=== PATIENT | female | born 1975 | race Hispanic/Latino ===

== ENCOUNTER 2017-09-06 15:08 | Inpatient (IN) | payer SELFPAY ==
[~2017-09-06] VITALS: Ht 167.6 cm; Wt 96.7 kg
[2017-09-06 15:59] LABS: BASOPHILS % (AUTO) 0.7 % (0.0-5.0); EOSINOPHILS % (AUTO) 1.4 % (0.0-8.0); HEMATOCRIT 38.7 % (36-48); LYMPHOCYTES % (AUTO) 32.9 % (21.0-51.0); MEAN CORPUSCULAR HEMOGLOBIN 29.3 pg (27.0-33.0); MEAN CORPUSCULAR HGB CONC 35.9 g/dL (32.0-36.0); MEAN CORPUSCULAR VOLUME 81.6 fL (79-99); MONOCYTES % (AUTO) 7.6 % (3.0-13.0); NEUTROPHILS % (AUTO) 57.4 % (40.0-77.0); PLATELET COUNT (AUTO) 235 K/uL (130-400); RED BLOOD CELL COUNT(AUTO) 4.74 MIL/uL (4.00-5.50); RED CELL DISTRIBUTION WIDTH 14.1 % (11.0-15.5); WHITE BLOOD COUNT (AUTO) 9.6 K/uL (4.8-10.8)
[2017-09-06 16:12] LABS: CREATININE 0.6 mg/dL (0.5-1.5); POTASSIUM 4.1 mmol/L (3.5-5.1)
[2017-09-06 16:17] LABS: ALBUMIN 3.8 g/dL (3.5-5.0); BILIRUBIN,TOTAL 0.4 mg/dL (0.2-1.0); TOTAL PROTEIN, SERUM 7.9 g/dL (6.0-8.3)
[2017-09-06] MEDS ORDERED: GADOBENATE DIMEGLUMINE 10 ML IV ONE (18:22)
[2017-09-06] MEDS ORDERED: ASPIRIN 325 MG TABLET ONE (19:56)
[2017-09-06 21:00] VITALS: BP 102/74
[2017-09-06 23:52] VITALS: BP 102/67
[2017-09-07] MEDS ORDERED: FAMOTIDINE/PF 20 MG/2 ML VIAL IV SCH (01:15)
[2017-09-07] MEDS ORDERED: HYDRALAZINE HCL 20 MG/ML VIAL IV PRN (01:15)
[2017-09-07] MEDS ORDERED: ACETAMINOPHEN 325 MG TAB PO PRN ×2 (01:15→01:45)
[2017-09-07] MEDS ORDERED: FAMOTIDINE 20MG TAB 20 MG TAB ONE (02:06)
[2017-09-07] MEDS ORDERED: ONDANSETRON HCL MDV 20ML 2 MG/ML VIAL IVP PRN (02:15)
[2017-09-07] MEDS: FAMOTIDINE 20MG TAB 20 MG TAB PO SCH (02:27)
[2017-09-07 03:16] VITALS: BP 105/85
[2017-09-07 06:02] LABS: BASOPHILS % (AUTO) 0.4 % (0.0-5.0); HEMATOCRIT 35.7 % (36-48); MEAN CORPUSCULAR HEMOGLOBIN 28.3 pg (27.0-33.0); MEAN CORPUSCULAR HGB CONC 34.7 g/dL (32.0-36.0); MEAN CORPUSCULAR VOLUME 81.5 fL (79-99); MONOCYTES % (AUTO) 7.2 % (3.0-13.0); NEUTROPHILS % (AUTO) 48.4 % (40.0-77.0); PLATELET COUNT (AUTO) 212 K/uL (130-400); RED BLOOD CELL COUNT(AUTO) 4.39 MIL/uL (4.00-5.50); RED CELL DISTRIBUTION WIDTH 14.3 % (11.0-15.5); WHITE BLOOD COUNT (AUTO) 8.1 K/uL (4.8-10.8)
[2017-09-07] MEDS ORDERED: LOSA25TA21 PO (06:08)
[2017-09-07 06:29] LABS: CREATININE 0.6 mg/dL (0.5-1.5); POTASSIUM 3.9 mmol/L (3.5-5.1); THYROID STIMULATING HORMONE 4.28 uIU/mL (0.36-3.74)
[2017-09-07 07:00] VITALS: BP 100/59
[2017-09-07] MEDS ORDERED: ASPIRIN 325MG EC TAB 325 MG TABLET.DR PO SCH (09:00)
[2017-09-07 09:29] LABS: HEMOGLOBIN A1C 5.3 % (4.0-6.0)
[2017-09-07] MEDS: ATORVASTATIN CALCIUM 40 MG TABLET PO SCH (09:46)
[2017-09-07] MEDS: LOSARTAN 50 MG TABLET PO SCH (09:46)
[2017-09-07] MEDS: DOCUSATE SODIUM 100 MG CAP PO SCH ×2 (09:50→20:56)
[2017-09-07] MEDS: ENOXAPARIN SODIUM 40 MG/0.4 ML SYRINGE SQ SCH (09:50)
[2017-09-07 11:00] VITALS: BP 109/63
[2017-09-07 16:00] VITALS: BP 122/74
[2017-09-07 20:20] VITALS: BP 110/76
[2017-09-07 23:45] VITALS: BP 106/63
[2017-09-08] MEDS: FAMOTIDINE 20MG TAB 20 MG TAB PO SCH ×2 (02:10→23:50)
[2017-09-08 04:10] VITALS: BP_SYST 106; BP_DIAS 67; BP_DIAS 73
[2017-09-08 05:07] LABS: CREATININE 0.7 mg/dL (0.5-1.5); MAGNESIUM 1.9 mg/dL (1.80-2.40)
[2017-09-08 08:11] VITALS: BP 106/74
[2017-09-08] MEDS: DOCUSATE SODIUM 100 MG CAP PO SCH ×2 (09:14→20:46)
[2017-09-08] MEDS: ASPIRIN 81MG TAB.CHEW PO SCH (09:14)
[2017-09-08] MEDS: ATORVASTATIN CALCIUM 40 MG TABLET PO SCH (09:14)
[2017-09-08] MEDS: LOSARTAN 50 MG TABLET PO SCH (09:15)
[2017-09-08] MEDS: ENOXAPARIN SODIUM 40 MG/0.4 ML SYRINGE SQ SCH (09:15)
[2017-09-08 11:54] VITALS: BP 107/77
[2017-09-08] MEDS ORDERED: ASPI-1005 PO (15:55)
[2017-09-08] MEDS ORDERED: ATOR40TA69 PO (15:55)
[2017-09-08] MEDS ORDERED: LOSA50TA2 PO (15:55)
[2017-09-08 16:33] VITALS: BP 102/69
[2017-09-08 19:20] VITALS: BP 103/75
[2017-09-09 00:05] VITALS: BP 102/64
[2017-09-09 08:24] VITALS: BP 125/62
[2017-09-09] MEDS: DOCUSATE SODIUM 100 MG CAP PO SCH (08:34)
[2017-09-09] MEDS: LOSARTAN 50 MG TABLET PO SCH (08:34)
[2017-09-09] MEDS: ASPIRIN 81MG TAB.CHEW PO SCH (08:34)
[2017-09-09] MEDS: ATORVASTATIN CALCIUM 40 MG TABLET PO SCH (08:34)
[2017-09-09] MEDS: ENOXAPARIN SODIUM 40 MG/0.4 ML SYRINGE SQ SCH (08:35)
[2017-09-09 11:47] VITALS: BP 104/74
== END 2017-09-09 14:14 | disposition home or self-care (01) | DRG 69 ==
LOC: EDH 15:08 → EDHIP 15:09 → 4BH 21:00
PROVIDERS: ADMIT Family Medicine; ATTEND Family Medicine
DX: G45.9 Transient cerebral ischemic attack, unspecified (principal); D32.9 Benign neoplasm of meninges, unspecified; E78.5 Hyperlipidemia, unspecified; Z68.34 Body mass index [BMI] 34.0-34.9, adult; E66.9 Obesity, unspecified; E03.9 Hypothyroidism, unspecified; I10 Essential (primary) hypertension; Z98.51 Tubal ligation status
CPT/HCPCS: 36415; 70450; 70553; 80048; 80053; 80061; 82948; 83036; 83735; 84443; 85025; 93005; 93306; 93880; 93970; A9577; J1650

== ENCOUNTER 2018-06-07 14:03 | Emergency (ER) | payer SELFPAY ==
[~2018-06-07 14:03] MED LIST: ASPI-1005 PO; ATOR40TA69 PO; LOSA25TA16 PO; LOSA50TA2 PO
== END 2018-06-07 22:32 ==
LOC: EDH 14:03
DX: S10.15XA Superficial foreign body of throat, initial encounter (principal); E78.00 Pure hypercholesterolemia, unspecified; I10 Essential (primary) hypertension; Z85.841 Personal history of malignant neoplasm of brain; X58.XXXA Exposure to other specified factors, initial encounter; Y93.89 Activity, other specified; Y92.89 Other specified places as the place of occurrence of the external cause; Y99.8 Other external cause status
CPT/HCPCS: 70490

== ENCOUNTER 2019-01-03 00:47 | Emergency (ER) | payer OTHER ==
[~2019-01-03 00:47] MED LIST changes: -LOSA25TA16 PO; +LOSA25TA41 PO
== END 2019-01-03 02:39 | disposition home or self-care (01) ==
LOC: EDH 00:47
DX: S13.9XXA Sprain of joints and ligaments of unspecified parts of neck, initial encounter (principal); E78.00 Pure hypercholesterolemia, unspecified; I10 Essential (primary) hypertension; V49.49XA Driver injured in collision with other motor vehicles in traffic accident, initial encounter; Y93.89 Activity, other specified; Y92.89 Other specified places as the place of occurrence of the external cause; Y99.8 Other external cause status
CPT/HCPCS: 72040

== ENCOUNTER 2024-05-28 19:28 | Emergency (ER) | payer BC ==
[~2024-05-28] VITALS: Ht 165.1 cm; Wt 79.4 kg
[~2024-05-28 19:28] MED LIST changes: +LOSA-418 PO; -LOSA50TA2 PO; +OMEP40CA21 PO; +ONDA-104 PO
--- NOTE | 2024-05-28 19:34 | NUR ---
UA CUP PROVIDED
[2024-05-28 20:36] LABS: BASOPHILS # (AUTO) 0.06 K/uL (0.00-0.20); BASOPHILS % (AUTO) 0.8 % (0.0-5.0); EOSINOPHILS # (AUTO) 0.09 K/uL (0.00-0.70); EOSINOPHILS % (AUTO) 1.1 % (0.0-8.0); HEMATOCRIT 35.6 % (36-48); IMMATURE GRANULOCYTE ABSOLUTE 0.02 K/uL (0-1); LYMPHOCYTES # (AUTO) 2.5 K/uL (1.0-4.8); MEAN CORPUSCULAR HEMOGLOBIN 28.4 pg (27.0-33.0); MEAN CORPUSCULAR HGB CONC 32.9 g/dL (32.0-36.0); MEAN CORPUSCULAR VOLUME 86.4 fL (79-99); MONOCYTES # (AUTO) 0.5 K/uL (0.1-1.0); NEUTROPHILS # (AUTO) 4.7 K/uL (1.8-7.7); NEUTROPHILS % (AUTO) 59.8 % (40.0-77.0); PLATELET COUNT (AUTO) 222 K/uL (130-400); RED BLOOD CELL COUNT(AUTO) 4.12 MIL/uL (4.00-5.50); RED CELL DISTRIBUTION WIDTH 13.2 % (11.0-15.5); WHITE BLOOD COUNT (AUTO) 7.9 K/uL (4.8-10.8)
[2024-05-28 20:45] LABS: CREATININE 0.8 mg/dL (0.5-1.0); POTASSIUM 3.8 mmol/L (3.5-5.1)
[2024-05-28] MEDS: HYDROcodone/acetaMINOPHEN 10/325 MG TAB PO ONE (22:38)
--- NOTE | 2024-05-29 00:05 | HMCIMG ---
CT HEAD/BRAIN W/O CONTRAST HISTORY: Severe headaches COMPARISON: None TECHNIQUE: Multiple sequential axial images of the head were obtained from the base of the skull through vertex. Patient was not given contrast through intravenous route. FINDINGS: The ventricles and extraventricular CSF spaces are nondilated for patient's age. There is no midline shift, mass effect or herniation. No acute intracranial bleed is seen. Visualized portion of the paranasal sinuses are grossly within normal limits. IMPRESSION: 1. No acute intracranial bleed is seen. CT was performed with one or more following dose reduction techniques: automated exposure control, adjustment of the mA and kv according to patient's size, or use of a iterative reconstruction technique.
[2024-05-29] MEDS ORDERED: KETO10TA2 PO (00:10)
--- NOTE | 2024-05-29 00:11 | ERN ---
General Chief Complaint: Headache Stated Complaint: HEADACHE Time Seen by MD: 19:30 Time Seen by Midlevel: 19:30 Source: patient History of Present Illness Initial Comments Patient is a 49-year-old female with a past medical history of an ischemic stroke and meningioma presenting to the emergency department with intermittent episodes of a headache. The headache starts in the parietal area but then radiates to the frontal aspect of the scalp. During these episodes of headaches she reports vision changes. They usually resolve on their own however they have been come more frequently recently. Given patient's history of stroke and meningioma she was concerned so she decided to report to the ER for further evaluation. Allergies: Coded Allergies: No Known Drug Allergies (Unverified Allergy, Unknown, 09/06/17) Home Meds Active Scripts Ketorolac Tromethamine (Ketorolac Tromethamine) 10 Mg Tablet, 1 TAB PO TID for pain for 5 Days, #15 TAB 0 Refills Prov:TELLY KING 05/29/24 Ondansetron HCl (Ondansetron HCl) 4 Mg Tablet, 4 MG PO TIDP PRN for VOMITING, #20 TAB Prov:SHANNON MCGILL MD 05/15/22 Omeprazole (Omeprazole) 40 Mg Capsule.dr, 40 MG PO DAILY, #30 CAP Prov:SHANNON MCGILL MD 05/15/22 Losartan Potassium (Cozaar) 50 Mg Tablet, 25 MG PO DAILY for 30 Days, #30 TAB Prov:GINETTE HENLEY NP 09/08/17 Atorvastatin Calcium (LIPITOR) 40 Mg Tablet, 40 MG PO DAILY for 30 Days, #30 TAB Prov:GINETTE HENLEY NP 09/08/17 Aspirin (ASPIRIN 81MG CHEW TAB) 81 Mg Tab.chew, 81 MG PO DAILY for 30 Days, #30 TAB.CHEW Prov:GINETTE HENLEY NP 09/08/17 Reported Medications Losartan Potassium (Losartan Potassium) 25 Mg Tablet, 25 MG PO AM, TAB 09/07/17 Past Medical History Past Medical History: Anemia, High Cholesterol, Other Medical History Other: HERNIA Past Surgical History: Hysterectomy, Other Surgical History Other: TUBAL LIGATION Family History Family History: HTN Social History Social History: Negative ROS Dictation CONSTITUTIONAL: Negative except for HPI HEAD/FACE: Negative except for HPI EENT: Negative except for HPI RESPIRATORY: Negative except for HPI GASTROINTESTINAL/ABDOMINAL: Negative except for HPI GENITOURINARY: Negative except for HPI MUSCULOSKELETAL: Negative except for HPI INTEGUMENTARY: Negative except for HPI NEUROLOGICAL/PSYCH: Negative except for HPI HEMATOLOGIC/LYMPHATIC: Negative except for HPI All Systems Negative, Except as noted above. 13 point review of systems assessed and all negative except for above. Physical Exam Physical Exam Dictation Vital Signs reviewed General Appearance: Alert, oriented x 3, no acute distress, well developed, nourished. Head and Face: non-traumatic. Eyes: PERRL, pink conjunctivas, eyelid no trauma, anterior chamber with arcus senilis. Ears: Pinnas intact and no signs of trauma or erythema ear canals clear and no discharge TM no erythema Nose: No discharge, no bleeding. Oropharynx: Mouth normal, tongue pink, pharynx clear,no erythema, tonsils no exudates, no abscesses noted, mucous membrane moist Neck: Supple, non-tender, no thyromegaly, no masses, no JVD, no bruits Breast:Deferred Chest:No tenderness, no crepitus, no paradoxical movement, no retractions Lungs:Clear, well-ventilated, symmetric, no rales, no wheezing, no rhonchi, no stridor, good breath sounds bilaterally Heart: Regular rate, regular rhythm, no murmur, no gallops Vascular: no peripheral edema, Abdomen: Soft, positive bowel sounds, nondistended, no guarding, nontender, no rebound, no masses no hepatomegaly, no splenomegaly, no Garcia's sign, no hernias. Rectal: Deferred Genital: Deferred Neurological: Normal speech, motor function intact, sensory function intact Musculoskeletal: Neck nontender, full range of motion, back nontender, full range of motion, Extremities: nontender, full range of motion Skin: Color pink, dry, no turgor, no rash, no lacerations, no abrasions, no contusions. Lymphatic: Deferred Results Laboratory and Microbiology Lab and Micro Result Laboratory Tests Test 05/28/24 20:25 White Blood Count 7.9 K/uL (4.8-10.8) Red Blood Count 4.12 MIL/uL (4.00-5.50) Hemoglobin 11.7 g/dL (12.0-16.0) L Hematocrit 35.6 % (36-48) L Mean Corpuscular Volume 86.4 fL (79-99) Mean Corpuscular Hemoglobin 28.4 pg (27.0-33.0) Mean Corpuscular Hemoglobin Concent 32.9 g/dL (32.0-36.0) Red Cell Distribution Width 13.2 % (11.0-15.5) Platelet Count 222 K/uL (130-400) Mean Platelet Volume 11.5 fL (7.5-10.5) H Immature Granulocyte % (Auto) 0.3 % (0-1) Neutrophils (%) (Auto) 59.8 % (40.0-77.0) Lymphocytes (%) (Auto) 32.0 % (21.0-51.0) Monocytes (%) (Auto) 6.0 % (3.0-13.0) Eosinophils (%) (Auto) 1.1 % (0.0-8.0) Basophils (%) (Auto) 0.8 % (0.0-5.0) Neutrophils # (Auto) 4.7 K/uL (1.8-7.7) Lymphocytes # (Auto) 2.5 K/uL (1.0-4.8) Monocytes # (Auto) 0.5 K/uL (0.1-1.0) Eosinophils # (Auto) 0.09 K/uL (0.00-0.70) Basophils # (Auto) 0.06 K/uL (0.00-0.20) Absolute Immature Granulocyte (auto 0.02 K/uL (0-1) Nucleated Red Blood Cells 0.0 % (0.0-0.19) Sodium Level 142 mmol/L (136-145) Potassium Level 3.8 mmol/L (3.5-5.1) Chloride Level 107 mmol/L (101-111) Carbon Dioxide Level 30 mmol/L (21-32) Blood Urea Nitrogen 15 mg/dL (7-18) Creatinine 0.8 mg/dL (0.5-1.0) Glomerular Filtration Rate Calc 89 mL/min (>90) Random Glucose 117 mg/dL (70-105) H Total Calcium 8.8 mg/dL (8.5-10.1) Labs Reviewed?: Yes MDM MDM: Patient is a 49-year-old female with a past medical history of an ischemic stroke and meningioma presenting to the emergency department with intermittent episodes of a headache. The headache starts in the parietal area but then radiates to the frontal aspect of the scalp. During these episodes of headaches she reports vision changes. They usually resolve on their own however they have been come more frequently recently. Given patient's history of stroke and meningioma she was concerned so she decided to report to the ER for further evaluation. On physical exam on physical examination patient is in no acute distress. Her vital signs are stable. Her neurological is unremarkable. She has a GCS of 15. She was reporting a severe headache at this time. Basic labs were obtained and they are unremarkable however given her medical history CT scan of the head was obtained which does not show any acute abnormalities. Patient was observed in the ER for over 4 hours and has remained stable. It did offer admission for further workup however patient is refusing to be admitted. Patient states she will be following up outpatient and will be returning to the ER if he develops any new or worsening symptoms. Differential diagnosis: Migraine headaches, intracranial bleed, meningioma, brain tumor There are no social concerns with this patient. Prescription drug management Prescriptions will include: Toradol Medical management and examination interpretation discussions were had by me with other qualified healthcare professionals as indicated for the patient's care. ED Course Orders Procedure Category Date Status Time Cbc With Differential LAB 05/28/24 Complete 19:37 Basic Metabolic Panel LAB 05/28/24 Complete 19:37 Hydrocodone/Apap PHA 05/28/24 Complete 10/325 Tab ([place] 10) 20:00 Ct Head/Brain W/O CT 05/28/24 Resulted Contrast 22:30 Current Medications Medications (Trade) Dose Ordered Sig/Dane Route PRN Reason Start Time Stop Time Status Last Admin Dose Admin Acetaminophen/ Hydrocodone Bitart ([place] 10) 1 tab ONCE ONCE PO 05/28/24 20:00 05/28/24 20:01 DC 05/28/24 22:38 Vital Signs Date Time Temp Pulse Resp B/P (MAP) Pulse Ox O2 Delivery O2 Flow Rate FiO2 05/28/24 19:30 98.2 77 16 165/85 98 Room Air [facility] [address] [place] [address] IMAGING REPORT Signed PATIENT: GUILLERMINA BARTON MR#: [id number] : 1975 SEX: F AGE: 49 LOCATION: [facility] ORDER 30 STATUS: REG ER REPORT#: [id number] SERVICE 29 REASON: severe headaches hx of infarct/meningioma ORDERING PHYSICIAN: TELLY KING PROCEDURE: HEAD WO - CT HEAD/BRAIN W/O CONTRAST CT HEAD/BRAIN W/O CONTRAST HISTORY: Severe headaches COMPARISON: None TECHNIQUE: Multiple sequential axial images of the head were obtained from the base of the skull through vertex. Patient was not given contrast through intravenous route. FINDINGS: The ventricles and extraventricular CSF spaces are nondilated for patient's age. There is no midline shift, mass effect or herniation. No acute intracranial bleed is seen. Visualized portion of the paranasal sinuses are grossly within normal limits. IMPRESSION: 1. No acute intracranial bleed is seen. CT was performed with one or more following dose reduction techniques: automated exposure control, adjustment of the mA and kv according to patient's size, or use of a iterative reconstruction technique. DICTATED BY: EVELYN JONES MD DATE: 05/29/24 0001 ELECTRONICALLY SIGNED BY: EVELYN JONES MD DATE: 05/29/24 0005 DX & DISP Disposition: Discharge Departure Impression: Primary Impression: Recurrent headache Additional Impressions: History of stroke, History of meningioma of the brain Condition: Stable Scripts Ketorolac Tromethamine (Ketorolac Tromethamine) 10 Mg Tablet 1 TAB PO TID for pain for 5 Days, #15 TAB 0 Refills Prov: TELLY KING 05/29/24 Additional Instructions: Your blood work today is unremarkable. Your CT scan is negative for any acute abnormality. You will need to follow up with your primary care provider for repeat evaluation. Return to the ER for any new or worsening symptoms Referrals: MOLLY CARREON MD (PCP) LAKIA POSADA MD, DARIO E MD Time of Disposition: 00:10 I have reviewed the case, and I agree with, Diagnosis and Plan I performed the substantive portion of the visit. I have reviewed and p ersonally made and approve the management plan that is documented in the note by myself or the JOEL. I acknowledge for responsibility for the patient's management plan. TELLY KING May 29, 2024 00:11
[2024-05-29 00:19] VITALS: BP 150/77; PULSE 67; RESP 16; TEMP 98.3; O2SAT 98
== END 2024-05-29 00:30 | disposition home or self-care (01) ==
LOC: EDH 19:28
DX: R51.9 Headache, unspecified (principal); E78.00 Pure hypercholesterolemia, unspecified; Z79.82 Long term (current) use of aspirin; Z79.899 Other long term (current) drug therapy; Z86.73 Personal history of transient ischemic attack (TIA), and cerebral infarction without residual deficits; Z90.710 Acquired absence of both cervix and uterus; Z98.890 Other specified postprocedural states
CPT/HCPCS: 36415; 70450; 80048; 85025; 99284

== ENCOUNTER 2024-09-04 21:42 | Emergency (ER) | payer BC ==
[~2024-09-04] VITALS: Ht 157.5 cm; Wt 95.3 kg
[~2024-09-04 21:42] MED LIST changes: +KETO10TA2 PO
--- NOTE | 2024-09-04 21:44 | NUR ---
COVID, FLU , STREP COLLECTED AND SENT
[2024-09-04] MEDS: ketOROlac 60 MG VIAL (30MG/ML) IM ONE (22:10)
[2024-09-04] MEDS: acetaMINOPHEN 500 MG TABLET PO ONE (22:10)
[2024-09-04 22:20] LABS: RAPID GROUP A STREP negative (NEGATIVE)
[2024-09-04 22:27] LABS: SARS-CoV-2, RNA, NAAT NEGATIVE SARS CoV-2 (NEGATIVE)
[2024-09-04 22:30] LABS: INFLUENZA TYPE A Negative For Type A (NEGATIVE)
[2024-09-04 22:50] LABS: INFLUENZA TYPE B Positive For Type B (NEGATIVE)
--- NOTE | 2024-09-04 23:03 | ERN ---
ED Note History of Present Illness Stated Complaint: FEVER, EAR PAIN, SORE THROAT Chief Complaint: Flu Symptoms Time Seen by MD: 21:46 Time Seen by Midlevel: 21:46 Dictation: The patient is a 49-year-old female with a history of abdominal hernia who pr esents to the emergency department with complaints of fever, sore throat, headache, generalized body weakness, ear pain onset Friday 09/01. Patient denies any cough denies any nausea or vomiting. Allergies: Coded Allergies: No Known Drug Allergies (Unverified Allergy, Unknown, 09/06/17) Home Meds Active Scripts Ketorolac Tromethamine (Ketorolac Tromethamine) 10 Mg Tablet, 1 TAB PO TID for pain for 5 Days, #15 TAB 0 Refills Prov:TELLY KING 05/29/24 Ondansetron HCl (Ondansetron HCl) 4 Mg Tablet, 4 MG PO TIDP PRN for VOMITING, #20 TAB Prov:SHANNON MCGILL MD 05/15/22 Omeprazole (Omeprazole) 40 Mg Capsule.dr, 40 MG PO DAILY, #30 CAP Prov:SHANNON MCGILL MD 05/15/22 Losartan Potassium (Cozaar) 50 Mg Tablet, 25 MG PO DAILY for 30 Days, #30 TAB Prov:GINETTE HENLEY NP 09/08/17 Atorvastatin Calcium (LIPITOR) 40 Mg Tablet, 40 MG PO DAILY for 30 Days, #30 TAB Prov:GINETTE HENLEY NP 09/08/17 Aspirin (ASPIRIN 81MG CHEW TAB) 81 Mg Tab.chew, 81 MG PO DAILY for 30 Days, #30 TAB.CHEW Prov:GINETTE HENLEY NP 09/08/17 Reported Medications Losartan Potassium (Losartan Potassium) 25 Mg Tablet, 25 MG PO AM, TAB 09/07/17 Past Medical History Past Medical History: Anemia, High Cholesterol, Other Additional Past Medical Hx: HERNIA Surgical History: Hysterectomy, Other Surgical History Other: TUBAL LIGATION Family History: HTN Social History: Negative RN Note Reviewed/Agreed w/PFSH: Yes Review of System Dictation Constitutional: Negative for chills, and weight loss positive for fevers Eyes: Negative for injury, pain,redness, and discharge ENT: Negative for injury,pain or swelling positive for sore throat, ear pain Cardiovascular: Negative for chest pain, palpitations, and edema Respiratory: Negative for shortness of breath, cough, and wheezing, Abdomen/GI: Negative for abdominal pain, nausea, vomiting, diarrhea, and constipation Back: Negative for injury and pain : Negative for injury, bleeding and discharge MS/Extremity: Negative for injury and deformity Skin: Negative for rash, and discoloration Neuro: Negative for headache, weakness, numbness, tingling, and seizure Psych: Negative for suicide ideation, homicidal ideation, and hallucinations Initial Vital Sign VS Vital Signs Date Time Temp Pulse Resp B/P (MAP) Pulse Ox O2 Delivery O2 Flow Rate FiO2 09/04/24 21:43 100.2 103 20 146/98 98 Room Air 09/04/24 21:53 0 21 Physical Exam Dictation Vital Signs reviewed General Appearance: Alert, oriented x 3, no acute distress, well developed, nourished. Head and Face: non-traumatic. Eyes: PERRL, pink conjunctivas, eyelid no trauma, anterior chamber with arcus senilis. Ears: Pinnas intact and no signs of trauma , +erythema ear canals clear and no discharge TM no erythema Nose: No discharge, no bleeding. Oropharynx: Mouth normal, tongue pink. pharynx clear,no erythema, tonsils no exudates, no abscesses noted, mucous membrane moist Neck: Supple, non-tender, no thyromegaly, no masses, no JVD, no bruits Breast:Deferred Chest:No tenderness, no crepitus, no paradoxical movement, no retractions Lungs:Clear, well-ventilated, symmetric, no rales, no wheezing, no rhonchi, no stridor, good breath sounds bilaterally Heart: Regular rate, regular rhythm, no murmur, no gallops Vascular: no peripheral edema, Abdomen: Soft, positive bowel sounds, nondistended, no guarding, nontender, no rebound, no masses no hepatomegaly, no splenomegaly, no Garcia's sign, no hernias. Rectal: Deferred Genital: Deferred Neurological: Normal speech, motor function intact, sensory function intact Musculoskeletal: Neck nontender, full range of motion, back nontender, full range of motion, Extremities: nontender, full range of motion Skin: Color pink, dry, no turgor, no rash, no lacerations, no abrasions, no contusions. Lymphatic: Deferred Results (Laboratory/Radiology) Laboratory/Radiology Laboratory Tests Test 09/04/24 21:45 Influenza Type A Antigen Negative For Type A Influenza Type B Antigen Positive For Type B SARS-CoV-2, RNA, NAAT NEGATIVE SARS CoV-2 Group A Streptococcus Rapid negative (NEGATIVE) Labs Reviewed?: Yes ED Course ED Course Orders Procedure Category Date Status Time Covid Rna Naat LAB 09/04/24 Complete 21:43 Influenza Type A & B, LAB 09/04/24 Complete Rapid 21:43 Rapid (Group A Strep) LAB 09/04/24 Complete 21:43 Ketorolac 60mg/2ml PHA 09/04/24 Complete (Toradol 60mg/2ml) 22:00 Acetaminophen 500mg PHA 09/04/24 Complete Tab (Tylenol 500mg T 22:00 Current Medications Medications (Trade) Dose Ordered Sig/Dane Route PRN Reason Start Time Stop Time Status Last Admin Dose Admin Acetaminophen (TYLenol 500MG TAB) 1,000 mg ONCE ONCE PO 09/04/24 22:00 09/04/24 22:01 DC 09/04/24 22:10 Ketorolac Tromethamine (toRADol 60MG/ 2ML) 60 mg ONCE ONCE IM 09/04/24 22:00 09/04/24 22:01 DC 09/04/24 22:10 Vital Signs Date Time Temp Pulse Resp B/P (MAP) Pulse Ox O2 Delivery O2 Flow Rate FiO2 09/04/24 21:53 98.4 78 20 132/65 98 Room Air* 0 21 09/04/24 21:43 100.2 103 20 146/98 98 Room Air Medical Decision Making MDM The patient is a 49-year-old female with a history of abdominal hernia who presents to the emergency department with complaints of fever, sore throat, headache, generalized body weakness, ear pain onset Friday 09/01. Patient denies any cough denies any nausea or vomiting. Serology positive for influenza B. patient's symptoms greater than 48 hours. We will not benefit from Tamiflu. Patient also with no comorbidities. Patient in no acute distress, clear lung sounds. Will be discharged to follow up with PCP. Differential diagnosis: COVID 19 infection, influenza, otitis media, pharyngitis, strep throat Need for hospitalization: Patient does not meet criteria for hospitalization. There are no social concerns with this patient. DX & DISP Disposition: Discharge Departure Impression: Primary Impression: Influenza B Condition: Stable Additional Instructions: Please continue to take Tylenol and Motrin as needed for fevers. Please follow up with the primary doctor. Continue oral hydration at home if symptoms worsen please return to ER. FOLLOW-UP WITH PRIMARY CARE PROVIDER IN 1 TO 2 DAYS. TAKE MEDICATIONS DIRECTED HERE IN THE EMERGENCY ROOM. OKAY TO CONTINUE HOME MEDICATIONS UNLESS OTHERWISE DISCUSSED DURING YOUR VISIT IN THE EMERGENCY ROOM TODAY. RETURN TO YOUR NEAREST EMERGENCY ROOM IF SYMPTOMS WORSEN OR IF THERE IS NO IMPROVEMENT. CALL 911 IF YOU NEED IMMEDIATE ASSISTANCE. TAKE TYLENOL OR MOTRIN [id number] NEEDED AND IF NO CONTRAINDICATIONS ARE PRESENT. INCREASE ORAL HYDRATION. A WOUND CULTURE OR URINE CULTURE WAS ORDERED HERE IN THE EMERGENCY ROOM DEPARTMENT PLEASE FOLLOW-UP WITH PRIMARY CARE PROVIDER AND ADVISE THEM TO GET REPEAT PORTS FROM OUR FACILITY. IF YOU HAD ANY SHAUNA WRAP/SPLINTS TH AT WERE APPLIED HERE, PLEASE DO NOT REMOVE THEM UNTIL YOU SEE YOUR PRIMARY CARE OR SPECIALTY. Referrals: ROSARIO ROTH (PCP) Time of Disposition: 23:03 I have reviewed the case, and I agree with, Diagnosis and Plan REAL MCKINNEY Sep 04, 2024 23:03
[2024-09-04 23:10] VITALS: BP 127/67; PULSE 76; RESP 18; TEMP 98; O2SAT 97
== END 2024-09-04 23:16 | disposition home or self-care (01) ==
LOC: EDH 21:42
DX: J10.1 Influenza due to other identified influenza virus with other respiratory manifestations (principal); E78.00 Pure hypercholesterolemia, unspecified; Z79.82 Long term (current) use of aspirin; Z79.899 Other long term (current) drug therapy; Z90.710 Acquired absence of both cervix and uterus; Z20.822 Contact with and (suspected) exposure to COVID-19
CPT/HCPCS: 99284; 87635; 87880; 87804 ×2; 96372; J1885

== ENCOUNTER 2024-10-04 20:40 | Emergency (ER) | payer BC ==
[~2024-10-04] VITALS: Ht 162.6 cm; Wt 104.3 kg
--- NOTE | 2024-10-04 21:34 | ERN ---
General Chief Complaint: Dizzy/Light Headed Stated Complaint: NAUSEA,DIZZYNESS,MULTIPLE COMPLAINTS Time Seen by MD: 21:22 Source: patient History of Present Illness Initial Comments Patient is a 49-year-old female who comes in with chief complaint of l ightheadedness and a little bit of nausea. She states she has not been drinking fluid the last few days. She was recently seen by a physician for an upset stomach and was given a prescription for omeprazole lansoprazole and two antibiotics for H pylori. In addition she was noted to be hypertensive there and they prescribed losartan which she has been taking for only four days. She wonders if these new medications are the reason she is feeling lightheaded. Her blood pressure in the ED is 169 systolic. Allergies: Coded Allergies: No Known Drug Allergies (Unverified Allergy, Unknown, 09/06/17) Home Meds Active Scripts Ketorolac Tromethamine (Ketorolac Tromethamine) 10 Mg Tablet, 1 TAB PO TID for pain for 5 Days, #15 TAB 0 Refills Prov:TELLY KING 05/29/24 Ondansetron HCl (Ondansetron HCl) 4 Mg Tablet, 4 MG PO TIDP PRN for VOMITING, #20 TAB Prov:SHANNON MCGILL MD 05/15/22 Omeprazole (Omeprazole) 40 Mg Capsule.dr, 40 MG PO DAILY, #30 CAP Prov:SHANNON MCGILL MD 05/15/22 Losartan Potassium (Cozaar) 50 Mg Tablet, 25 MG PO DAILY for 30 Days, #30 TAB Prov:GINETTE HENLEY NP 09/08/17 Atorvastatin Calcium (LIPITOR) 40 Mg Tablet, 40 MG PO DAILY for 30 Days, #30 TAB Prov:GINETTE HENLEY NP 09/08/17 Aspirin (ASPIRIN 81MG CHEW TAB) 81 Mg Tab.chew, 81 MG PO DAILY for 30 Days, #30 TAB.CHEW Prov:GINETTE HENLEY NP 09/08/17 Reported Medications Losartan Potassium (Losartan Potassium) 25 Mg Tablet, 25 MG PO AM, TAB 09/07/17 Past Medical History Past Medical History: Hypertension Medical History Other: HERNIA, GERD Past Surgical History: None Surgical History Other: TUBAL LIGATION Family History Family History: HTN Social History Social History: Negative Female( History) LMP: Sep 20, 2024 Constitutional: (-) chills, (-) diaphoresis, (-) fever, (-) malaise, (-) weakness, (-) other documentation EENTM: (-) eye pain, (-) blurred vision, (-) tearing, (-) double vision, (-) ear pain, (-) ear discharge, (-) nose pain, (-) nose congestion, (-) throat pain, (-) Throat swelling, (-) mouth pain, (-) tooth pain, (-) mouth swelling, (-) other documentation Respiratory: (-) cough, (-) orthopnea, (-) short of breath, (-) stridor, (-) wheezing, (-) other documentation Cardiovascular: (-) chest pain, (-) edema, (-) palpitations, (-) syncope, (-) dyspnea on exertion, (-) other documentation Gastrointestinal/Abdominal: (+) nausea Genitourinary: (-) vaginal discharge, (-) vaginal bleeding, (-) dysuria, (-) frequency, (-) hematuria, (-) pain, (-) other documentation Musculoskeletal: (-) Neck pain, (-) back pain, (-) Flank Pain, (-) joint pain, (-) joint swelling, (-) muscle pain, (-) muscle stiffness, (-) gout, (-) other documentation Skin: (-) laceration, (-) contusion, (-) abrasion, (-) abscess, (-) rash, (-) change in color, (-) change in hair, (-) change in nails, (-) diaphoresis, (-) dryness, (-) other documentation Neuro: (-) altered mental status, (-) headache, (-) syncope, (-) paralysis, (-) numbness, (-) seizure, (-) pre-existing deficit, (-) tremors, (-) weakness, (-) dizziness, (-) slurred speech, (-) vertigo, (-) other documentation Physical Exam General Appearance: (+) no apparent distress Orientation: (+) alert, (+) oriented x 3 Eye: bilateral eye normal inspection, bilateral eye PERRL, bilateral eye EOMI Ear, Nose, Throat: (+) hearing grossly normal, (+) normal ENT inspection, (+) moist mucous membraine Neck: (+) normal inspection, (+) supple, (+) full range of motion Respiratory: (+) chest non-tender, (+) lungs clear Heart: (+) regular, (+) no gallop Vascular: (+) no edema, (+) normal peripheral pulse Gastrointestinal: (+) soft, (+) non-tender, (+) bowel sound present Results Laboratory and Microbiology Lab and Micro Result Laboratory Tests Test 10/04/24 22:25 White Blood Count 6.7 K/uL (4.8-10.8) Red Blood Count 4.18 MIL/uL (4.00-5.50) Hemoglobin 11.7 g/dL (12.0-16.0) L Hematocrit 35.7 % (36-48) L Mean Corpuscular Volume 85.4 fL (79-99) Mean Corpuscular Hemoglobin 28.0 pg (27.0-33.0) Mean Corpuscular Hemoglobin Concent 32.8 g/dL (32.0-36.0) Red Cell Distribution Width 13.8 % (11.0-15.5) Platelet Count 222 K/uL (130-400) Mean Platelet Volume 11.4 fL (7.5-10.5) H Immature Granulocyte % (Auto) 0.1 % (0-1) Neutrophils (%) (Auto) 47.7 % (40.0-77.0) Lymphocytes (%) (Auto) 41.6 % (21.0-51.0) Monocytes (%) (Auto) 7.8 % (3.0-13.0) Eosinophils (%) (Auto) 2.2 % (0.0-8.0) Basophils (%) (Auto) 0.6 % (0.0-5.0) Neutrophils # (Auto) 3.2 K/uL (1.8-7.7) Lymphocytes # (Auto) 2.8 K/uL (1.0-4.8) Monocytes # (Auto) 0.5 K/uL (0.1-1.0) Eosinophils # (Auto) 0.15 K/uL (0.00-0.70) Basophils # (Auto) 0.04 K/uL (0.00-0.20) Absolute Immature Granulocyte (auto 0.01 K/uL (0-1) Nucleated Red Blood Cells 0.0 % (0.0-0.19) Sodium Level 142 mmol/L (136-145) Potassium Level 3.9 mmol/L (3.5-5.1) Chloride Level 107 mmol/L (101-111) Carbon Dioxide Level 29 mmol/L (21-32) Blood Urea Nitrogen 8 mg/dL (7-18) Creatinine 0.5 mg/dL (0.5-1.0) Glomerular Filtration Rate Calc 113 mL/min (>90) Random Glucose 91 mg/dL (70-105) Total Calcium 8.8 mg/dL (8.5-10.1) MDM I will bolused the patient a L of lactated Ringer's. I will see if I can get a stool sample to check for H pylori. I will also check labs. Patient's vital signs are normal patient's labs are normal she feels better after receiving a L of lactated Ringer's she can go home. ED Course Orders Procedure Category Date Status Time H. Pylori Antigen LAB 10/04/24 Logged Stool 21:35 Lactated Ringers PHA 10/04/24 Complete 1000ml (Lactated 21:35 Cbc With Differential LAB 10/04/24 Complete 21:35 Basic Metabolic Panel LAB 10/04/24 Complete 21:35 Urinalysis Profile LAB 10/04/24 Logged 21:35 Current Medications Medications (Trade) Dose Ordered Sig/Dane Route PRN Reason Start Time Stop Time Status Last Admin Dose Admin Lactated Ringer's (Lactated Ringers 1000ml) 1,000 ml BOLUS STAT IV 10/04/24 21:35 10/04/24 21:38 DC 10/04/24 22:38 Vital Signs Date Time Temp Pulse Resp B/P (MAP) Pulse Ox O2 Delivery O2 Flow Rate FiO2 10/04/24 22:50 85 18 133/75 98 Room Air* 0 21 10/04/24 20:52 98.1 75 20 167/99 96 Room Air DX & DISP Disposition: Discharge Departure Impression: Primary Impression: Dehydration Condition: Stable Referrals: ROSARIO ROTH (PCP) ABBY ROBLERO MD Oct 04, 2024 21:34
[2024-10-04 22:37] LABS: BASOPHILS # (AUTO) 0.04 K/uL (0.00-0.20); BASOPHILS % (AUTO) 0.6 % (0.0-5.0); EOSINOPHILS # (AUTO) 0.15 K/uL (0.00-0.70); EOSINOPHILS % (AUTO) 2.2 % (0.0-8.0); HEMATOCRIT 35.7 % (36-48); IMMATURE GRANULOCYTE ABSOLUTE 0.01 K/uL (0-1); LYMPHOCYTES # (AUTO) 2.8 K/uL (1.0-4.8); LYMPHOCYTES % (AUTO) 41.6 % (21.0-51.0); MEAN CORPUSCULAR HGB CONC 32.8 g/dL (32.0-36.0); MEAN CORPUSCULAR VOLUME 85.4 fL (79-99); MONOCYTES # (AUTO) 0.5 K/uL (0.1-1.0); MONOCYTES % (AUTO) 7.8 % (3.0-13.0); NEUTROPHILS # (AUTO) 3.2 K/uL (1.8-7.7); NEUTROPHILS % (AUTO) 47.7 % (40.0-77.0); PLATELET COUNT (AUTO) 222 K/uL (130-400); RED BLOOD CELL COUNT(AUTO) 4.18 MIL/uL (4.00-5.50); RED CELL DISTRIBUTION WIDTH 13.8 % (11.0-15.5); WHITE BLOOD COUNT (AUTO) 6.7 K/uL (4.8-10.8)
[2024-10-04] MEDS: LACTATED RINGERS 1000ML IV STA (22:38)
[2024-10-04 22:55] LABS: CREATININE 0.5 mg/dL (0.5-1.0); POTASSIUM 3.9 mmol/L (3.5-5.1)
[2024-10-05 00:45] VITALS: BP 134/72; PULSE 80; RESP 18; TEMP 98.1; O2SAT 96
== END 2024-10-05 00:45 | disposition home or self-care (01) ==
LOC: EDH 20:40
DX: E86.0 Dehydration (principal); I10 Essential (primary) hypertension; Z79.82 Long term (current) use of aspirin; Z79.899 Other long term (current) drug therapy; Z98.51 Tubal ligation status
CPT/HCPCS: 36415; 80048; 85025; 99283; 99284; J7120

== ENCOUNTER 2025-03-06 21:21 | Emergency (ER) | payer BC ==
[~2025-03-06] VITALS: Ht 165.1 cm; Wt 101.2 kg
[2025-03-06 21:50] VITALS: PULSE 80; RESP 18
[2025-03-06 22:33] VITALS: BP 147/70; PULSE 70; RESP 18; TEMP 98.8; O2SAT 99
--- NOTE | 2025-03-06 22:52 | ERN ---
ED Note History of Present Illness Stated Complaint: COUGH Chief Complaint: Cough Time Seen by MD: 21:28 Time Seen by Midlevel: 21:28 Dictation: The patient is a 49-year-old female with a history of hypertension who presents to the emergency department with complaints of productive cough, for one week. Patient reports she was seen by her primary doctor who gave her some antibiotics and some steroids. Denies any fevers. Allergies: Coded Allergies: No Known Drug Allergies (Unverified Allergy, Unknown, 09/06/17) Home Meds Active Scripts Ketorolac Tromethamine (Ketorolac Tromethamine) 10 Mg Tablet, 1 TAB PO TID for pain for 5 Days, #15 TAB 0 Refills Prov:TELLY KING 05/29/24 Ondansetron HCl (Ondansetron HCl) 4 Mg Tablet, 4 MG PO TIDP PRN for VOMITING, #20 TAB Prov:SHANNON MCGILL MD 05/15/22 Omeprazole (Omeprazole) 40 Mg Capsule.dr, 40 MG PO DAILY, #30 CAP Prov:SHANNON MCGILL MD 05/15/22 Losartan Potassium (Cozaar) 50 Mg Tablet, 25 MG PO DAILY for 30 Days, #30 TAB Prov:GINETTE HENLEY NP 09/08/17 Atorvastatin Calcium (LIPITOR) 40 Mg Tablet, 40 MG PO DAILY for 30 Days, #30 TAB Prov:GINETTE HENLEY NP 09/08/17 Aspirin (ASPIRIN 81MG CHEW TAB) 81 Mg Tab.chew, 81 MG PO DAILY for 30 Days, #30 TAB.CHEW Prov:GINETTE HENLEY NP 09/08/17 Reported Medications Losartan Potassium (Losartan Potassium) 25 Mg Tablet, 25 MG PO AM, TAB 09/07/17 Past Medical History Past Medical History: High Cholesterol, Hypertension Additional Past Medical Hx: HERNIA, GERD Surgical History: Other, BTL Surgical History Other: HERNIA Family History: HTN Social History: Negative RN Note Reviewed/Agreed w/PFSH: Yes Review of System Dictation Constitutional: Negative for fever,chills, and weight loss Eyes: Negative for injury, pain,redness, and discharge ENT: Negative for injury,pain or swelling Cardiovascular: Negative for chest pain, palpitations, and edema Respiratory: Negative for shortness of breath, and wheezing, positive for cough Abdomen/GI: Negative for abdominal pain, nausea, vomiting, diarrhea, and constipation Back: Negative for injury and pain : Negative for injury, bleeding and discharge MS/Extremity: Negative for injury and deformity Skin: Negative for rash, and discoloration Neuro: Negative for headache, weakness, numbness, tingling, and seizure Psych: Negative for suicide ideation, homicidal ideation, and hallucinations Initial Vital Sign VS Vital Signs Date Time Temp Pulse Resp B/P (MAP) Pulse Ox O2 Delivery O2 Flow Rate FiO2 03/06/25 21:23 98.8 74 18 161/77 99 Room Air 03/06/25 21:37 0 21 Physical Exam Dictation Vital Signs reviewed General Appearance: Alert, oriented x 3, no acute distress, well developed, nourished. Head and Face: non-traumatic. Eyes: PERRL, pink conjunctivas, eyelid no trauma, anterior chamber with arcus senilis. Ears: Pinnas intact and no signs of trauma or erythema ear canals clear and no discharge TM no erythema Nose: No discharge, no bleeding. Oropharynx: Mouth normal, tongue pink. pharynx clear,no erythema, tonsils no exudates, no abscesses noted, mucous membrane moist Neck: Supple, non-tender, no thyromegaly, no masses, no JVD, no bruits Breast:Deferred Chest:No tenderness, no crepitus, no paradoxical movement, no retractions Lungs:Clear, well-ventilated, symmetric, no rales, no wheezing, no rhonchi, no stridor, good breath sounds bilaterally Heart: Regular rate, regular rhythm, no murmur, no gallops Vascular: no peripheral edema, Abdomen: Soft, positive bowel sounds, nondistended, no guarding, nontender, no rebound, no masses no hepatomegaly, no splenomegaly, no Garcia's sign, no hernias. Rectal: Deferred Genital: Deferred Neurological: Normal speech, motor function intact, sensory function intact Musculoskeletal: Neck nontender, full range of motion, back nontender, full range of motion, Extremities: nontender, full range of motion Skin: Color pink, dry, no turgor, no rash, no lacerations, no abrasions, no contusions. Lymphatic: Deferred Results (Laboratory/Radiology) Labs Reviewed?: Yes ED Course ED Course Orders Procedure Category Date Status Time Dexamethasone 4mg/Ml PHA 03/06/25 Complete 1ml Vial (Dexametha 22:00 Ipratropium/Albuterol PHA 03/06/25 Complete Neb (Duoneb) 22:00 Guaifenesin-Codeine PHA 03/06/25 Complete Syrup 5ml (Robitussi 22:00 Current Medications Medications (Trade) Dose Ordered Sig/Dane Route PRN Reason Start Time Stop Time Status Last Admin Dose Admin Albuterol (DUOneb) 1 UDVIAL ONCE ONCE IH 03/06/25 22:00 03/06/25 22:01 DC 03/06/25 22:10 Dexamethasone Sodium Phosphate (dexaMETHasone 4MG/ML 1ML VIAL) 6 mg ONCE ONCE IM 03/06/25 22:00 03/06/25 22:01 DC 03/06/25 21:49 Guaifenesin/ Codeine Phosphate (RobiTUSSin AC 5 ML SYRUP) 10 ml ONCE ONCE PO 03/06/25 22:00 03/06/25 22:01 DC 03/06/25 21:49 Vital Signs Date Time Temp Pulse Resp B/P (MAP) Pulse Ox O2 Delivery O2 Flow Rate FiO2 03/06/25 22:33 98.8 70 18 147/70 99 Room Air* 0 21 03/06/25 21:50 80 18 03/06/25 21:37 98.8 74 18 161/77 99 Room Air* 0 21 03/06/25 21:23 98.8 74 18 161/77 99 Room Air Medical Decision Making MDM The patient is a 49-year-old female with a history of hypertension who presents to the emergency department with complaints of productive cough, for one week. Patient reports she was seen by her primary doctor who gave her some antibiotics and some steroids. Denies any fevers. Patient refused swabs and x-ray. Reports that she is already on antibiotics and that she already had her swabs done by her primary doctor. Patient only requesting to have a a breathing treatment an injection. Risks and benefits discussed with the patient. Reports that she is going to see her primary doctor in the morning. Patient has symptoms consistent with a an upper respiratory infection. On physical exam patient is in no acute distress, stable vital signs, nontoxic appearance. Patient received breathing treatment in ER. Patient will be discharged to follow up with your primary doctor in the morning. Differential diagnosis: Upper respiratory infection, bronchitis, pneumonia Need for hospitalization: Patient does not meet criteria for hospitalization. There are no social concerns with this patient. DX & DISP Disposition: Discharge Departure Impression: Primary Impression: URI with cough and congestion Condition: Stable Additional Instructions: Please continue taking the medications that you were prescribed by your primary doctor. Follow up with your primary doctor tomorrow. If anything worsens please return to ER. FOLLOW-UP WITH PRIMARY CARE PROVIDER IN 1 TO 2 DAYS. TAKE MEDICATIONS DIRECTED HERE IN THE EMERGENCY ROOM. OKAY TO CONTINUE HOME MEDICATIONS UNLESS OTHERWISE DISCUSSED DURING YOUR VISIT IN THE EMERGENCY ROOM TODAY. RETURN TO YOUR NEAREST EMERGENCY ROOM IF SYMPTOMS WORSEN OR IF THERE IS NO IMPROVEMENT. CALL 911 IF YOU NEED IMMEDIATE ASSISTANCE. TAKE TYLENOL [id number] NEEDED AND IF NO CONTRAINDICATIONS ARE PRESENT. INCREASE ORAL HYDRATION. A WOUND CULTURE OR URINE CULTURE WAS ORDERED HERE IN THE EMERGENCY ROOM DEPARTMENT PLEASE FOLLOW-UP WITH PRIMARY CARE PROVIDER AND ADVISE THEM TO GET REPEAT PORTS FROM OUR FACILITY. IF YOU HAD ANY SHAUNA WRAP/SPLINTS THAT WERE APPLIED HERE, PLEASE DO NOT REMOVE THEM UNTIL YOU SEE YOUR PRIMARY CARE OR SPECIALTY. Referrals: ROSARIO ROTH (PCP) Time of Disposition: 22:52 I have reviewed the case, and I agree with, Diagnosis and Plan REAL MCKINNEY Mar 06, 2025 22:52
== END 2025-03-06 23:11 | disposition home or self-care (01) ==
LOC: EDH 21:21
DX: J06.9 Acute upper respiratory infection, unspecified (principal); R05.9 Cough, unspecified; R09.81 Nasal congestion; E78.00 Pure hypercholesterolemia, unspecified; I10 Essential (primary) hypertension; Z79.82 Long term (current) use of aspirin; Z79.899 Other long term (current) drug therapy; Z98.51 Tubal ligation status
CPT/HCPCS: 99284; 96372; 94640; J1100